=== PATIENT | male | born 1965 | race Caucasian/White ===

== ENCOUNTER 2016-12-02 03:47 | Emergency (ER) | payer OTHER ==
[~2016-12-02] VITALS: Ht 182.9 cm; Wt 103.4 kg
--- NOTE | 2016-12-02 04:02 | ED INFLUENZA/URI COMPLAINT ---
History of Present Illness General Chief Complaint: General Adult Stated Complaint: BAD COUGH PER PT. Source: patient Exam Limitations: no limitations Vital Signs & Intake/Output Vital Signs & Intake/Output Vital Signs Date Time Temp Pulse Resp B/P B/P Pulse O2 O2 Flow FiO2 Mean Ox Delivery Rate 12/02 0414 98 Room Air 12/02 0405 96.6 83 18 143/82 98 Room Air Allergies Coded Allergies: No Known Allergies (12/02/16) Reconcile Medications Albuterol Sulfate (Ventolin Hfa) 90 MCG HFA.AER.AD 2 PUF INH Q4-6 PRN PRN COUGH/WHEEZE Azithromycin 250 MG TABLET 1 DP PO AD lung infection (Reported) 2 the first day followed by 1 for days 2-5 Benzonatate 200 MG CAPSULE 1 CAP PO TID cough (Reported) Loratadine (Claritin) 10 MG TABLET 1 TAB PO DAILY ALLERGIES Losartan Potassium 50 MG TABLET 1 TAB PO DAILY htn though patient denies ( Reported) Omeprazole 20 MG CAPSULE.DR 1 CAP PO DAILY stomach upset (Reported) Prednisone 50 MG TABLET 1 TAB PO DAILY BRONCHITIS/COUGH Promethazine HCl/Codeine (Promethazine-Codeine Syrup) 6.25 MG-10 MG/5 ML SYRUP 5-10 ML PO Q4-6 PRN COUGH ONE HUNDRED TWENTY... [id number] Triage Nurses Notes Reviewed? yes Onset: Gradual Duration: week(s):, waxing and waning Timing: recent history Severity: mild Prior Episodes/Possible Cause: frequent episodes Modifying Factors: Improves With: rest. Associated Symptoms: runny nose, dry cough HPI: 51-year-old gentleman history of hypertension presents with 6 weeks of intermittent dry cough, runny nose. He was seen at a urgent care clinic yesterday and was started on Tessalon Perles and a Z-Rory. He states that he feels no better. The Tessalon Perles make his cough worse. He notes no shortness of breath, fever, wheezing, chest pain. She is otherwise well Past History Travel History Traveled to [place] past 21 day No Medical History Any Pertinent Medical History? see below for history Surgical History Surgical History: none Psychosocial History What is your primary language Tunisian Family History Hx Contributory? No Review of Systems Review of Systems Constitutional: Reports: no symptoms. EENTM: Reports: no symptoms. Respiratory: Reports: no symptoms. Cardiovascular: Reports: no symptoms. GI: Reports: no symptoms. Genitourinary: Reports: no symptoms. Musculoskeletal: Reports: no symptoms. Skin: Reports: no symptoms. Neurological/Psychological: Reports: no symptoms. Hematologic/Endocrine: Reports: no symptoms. Immunologic/Allergic: Reports: no symptoms. All Other Systems: Reviewed and Negative Physical Exam Physical Exam General Appearance: well developed/nourished, no apparent distress Head: atraumatic, normal appearance Eyes: Bilateral: normal appearance. Ears, Nose, Throat: normal ENT inspection, moist mucous membrane Neck: normal inspection, supple, full range of motion Respiratory: normal breath sounds, chest non-tender, no respiratory distress, quiet respiration, lungs clear Cardiovascular: regular rate/rhythm Gastrointestinal: normal bowel sounds, soft, non-tender, no organomegaly Back: normal inspection Extremities: normal inspection Neurologic/Psych: no motor/sensory deficits, awake, alert, oriented x 3 Skin: intact, normal color, warm/dry Core Measures Severe Sepsis Present: No Septic Shock Present: No Progress Differential Diagnosis: otitis, pharyngitis, sinusitis, bronchitis Plan of Care: Current Medications Sig/Laura Start time Last Medication Dose Stop Time Status Admin Prednisone 60 MG ONCE ONE 12/02 429 UNVr 12/02 430 Initial ED EKG: none Departure Departure Disposition: HOME OR SELF CARE Condition: Stable Clinical Impression Primary Impression: Cough Secondary Impressions: Allergic rhinitis, Bronchitis Referrals: CORA PHIPPS,NATHANIEL Nevarez (PCP/Family) Departure Forms: Customer Survey General Discharge Information Prescriptions: Current Visit Scripts Promethazine HCl/Codeine (Promethazine-Codeine Syrup) 5-10 ML PO Q4-6 PRN COUGH #120 ML ONE HUNDRED TWENTY... [id number] Albuterol Sulfate (Ventolin Hfa) 2 PUF INH Q4-6 PRN PRN COUGH/WHEEZE #1 INHAL Ref 1 Prednisone 1 TAB PO DAILY #5 TAB Loratadine (Claritin) 1 TAB PO DAILY #30 TAB Comments Patient well appearing in the ED. He requests cough medicine with codeine. I will also prescribe steroids and albuterol. Close follow up encouraged with his pmd later today.
[2016-12-02 04:05] VITALS: BP 143/82
[2016-12-02] MEDS ORDERED: AZITHROMYCIN250 M1 PO (04:13)
[2016-12-02] MEDS ORDERED: BENZONATATE200 M1 PO (04:14)
[2016-12-02] MEDS ORDERED: OMEPRAZOLE20 M2 PO (04:14)
[2016-12-02] MEDS ORDERED: LOSARTAN POTASS50 M1 PO (04:14)
[2016-12-02] MEDS ORDERED: PREDNISONE50 M1 PO (04:25)
[2016-12-02] MEDS ORDERED: PROMETHAZINE-C118 ML PO (04:25)
[2016-12-02] MEDS ORDERED: CLARITIN10 M1 PO (04:25)
[2016-12-02] MEDS ORDERED: VENTOLIN HFA18 GM INH (04:25)
== END 2016-12-02 04:45 ==
LOC: ERH 03:47
DX: J40 Bronchitis, not specified as acute or chronic (principal); J30.9 Allergic rhinitis, unspecified